=== PATIENT | male | born 2000 | race Caucasian/White ===

== ENCOUNTER 2022-04-22 11:47 | Emergency (ER) | payer OTHER, SELFPAY ==
[2022-04-22 12:11] VITALS: BP 143/97; PULSE 74; RESP 18; TEMP 36.9; O2SAT 99; BMI 31.2
--- NOTE | 2022-04-22 12:20 | CRLHL7_ITS ---
For Patients: As a result of the Cures Act, medical imaging exams and procedure reports are released immediately into your electronic medical record. You may view this report before your referring provider. If you have questions, please contact your health care provider. Indication: Medial and lateral knee pain after twisting Comparison: None available. Technique: Standing AP, lateral, and sunrise views of the left knee were obtained Findings: There is subtle likely avulsion from the medial tibial tubercle with a thin corticated fragment projecting over the medial joint space. No evidence of large displaced fracture. There is mild medial compartmental joint space narrowing with minimal tibial spine spurring. There is moderate suprapatellar joint effusion. Impression: Demonstration of a thin likely avulsion fragment projecting over the medial joint space near the medial tibial tubercle likely representing sequela of ligamentous injury. Moderate joint effusion. No evidence of displaced fracture. Dictated by Renny Cordero MD @ 04/22/2022 1:05:00 PM (Electronically Signed)
[2022-04-22] MEDS: ACETAMINOPHEN 500 MG TABLET 1000 MG PO (12:44)
--- NOTE | 2022-04-22 13:36 | ED.GENADULT ---
HPI - General Adult General Chief complaint: Extremity Pain/Injury, Lower Stated complaint: Left knee injury Time Seen by Provider: 04/22/22 11:51 Source: patient Limitations: no limitations History of Present Illness HPI narrative: 21-year-old male coming in today with knee pain. States that he was at football practice when he was running to catch a ball turned and felt his knee twist and pop. When it initially occurred, he had pain laterally and per his rehab trainer had some lateral deformity. Now he states that the pain is mostly medially. [facility] stated that they were able to manipulate the knee and thought that it might have been dislocated but now popped back into place. Unclear if that was the kneecap that they were talking about. Related Data Home Medications Medication Instructions Recorded Confirmed No Known Home Medications 04/22/22 04/22/22 Allergies Allergy/AdvReac Type Severity Reaction Status Date / Time No Known Drug Allergies Allergy Verified 04/22/22 12:11 Review of Systems Narrative: Denies any other injury [facility] Medical History No significant past medical history Surgical History History of wisdom tooth extraction Social History Smoking Status: Never smoker Second hand tobacco smoke exposure: No How often do you have a drink containing alcohol: monthly or less How many standard drinks containing alcohol do you have on a typical day: 3 or 4 How often do you have six or more drinks on one occasion: Never AUDIT-C Alcohol total score: 2 Non-prescribed substance use: denies use Exam Narrative: Exam Narrative: Well-nourished well-developed patient in no acute distress. Alert and oriented. Answers questions appropriately. Mood and affect are appropriate. Thoughts are goal oriented and rational. No tangential or magical thinking noted. Patient speaks in full sentences without needing to catch their breath. Speech is not slurred or pressured HEENT: Normocephalic atraumatic. Pupils are equally round reactive to light. Extraocular muscles are intact. Conjunctivae are moist without any icterus noted. Extremities: Bilateral lower extremities are without edema. Normal DP and PT pulses. He has tenderness along the medial joint line as well as the proximal tibia. He has no tenderness to palpation of the patella. No pain with compression of the patella. He has decreased range of motion with inability to bend at the knee secondary to pain. There is a joint effusion present. There is no bruising or erythema. No broken skin. Has significant discomfort with any valgus or varus force. Skin: Well perfused without any obvious rashes. Const: Vital Signs, click to edit/add: Vital Signs - 24 hr 04/22/22 12:11 Temperature 98.5 F Pulse Rate [Left P ulse Oximeter] 74 Respiratory Rate 18 Blood Pressure [Le ft Upper Arm] 143/97 H Pulse Oximetry 99 Oxygen Delivery Me thod Room Air Course Course Hospital Course: X-rays showing a joint effusion with a tibial tubercle avulsion fracture. Vital Signs Vital signs: Initial Vital Signs Temperature 98.5 F 04/22/22 12:11 Temperature Source Temporal Artery Scan 04/22/22 12:11 Pulse Rate 74 04/22/22 12:11 Respiratory Rate 18 04/22/22 12:11 Blood Pressure 143/97 H 04/22/22 12:11 Blood Pressure Mean 112 04/22/22 12:11 Blood Pressure Position Sitting 04/22/22 12:11 Pulse Oximetry 99 04/22/22 12:11 Oxygen Delivery Method 04/22/22 12:11 Vital Signs Temperature 98.5 F 04/22/22 12:11 Pulse Rate 74 04/22/22 12:11 Respiratory Rate 18 04/22/22 12:11 Blood Pressure 143/97 H 04/22/22 12:11 Pulse Oximetry 99 04/22/22 12:11 Oxygen Delivery Method 04/22/22 12:11 Temperature 98.5 F 04/22/22 12:11 Pulse Rate 74 04/22/22 12:11 Respiratory Rate 18 04/22/22 12:11 Blood Pressure 143/97 H 04/22/22 12:11 Pulse Oximetry 99 04/22/22 12:11 Oxygen Delivery Method 04/22/22 12:11 Medical Decision Making MDM Narrative Medical decision making narrative: 21-year-old male with a tibial tubercle fracture, likely ligamentous injury as well. Patient will be placed in a knee immobilizer and to follow-up with orthopedic surgery next week. We discussed symptomatic treatment in the meantime. He had no other questions. Imaging Data Knee x-ray: Attestation: I have reviewed the pertinent imaging results. Radiologist's impression: Findings: There is subtle likely avulsion from the medial tibial tubercle with a thin corticated fragment projecting over the medial joint space. No evidence of large displaced fracture. There is mild medial compartmental joint space narrowing with minimal tibial spine spurring. There is moderate suprapatellar joint effusion. Impression: Demonstration of a thin likely avulsion fragment projecting over the medial joint space near the medial tibial tubercle likely representing sequela of ligamentous injury. Moderate joint effusion. No evidence of displaced fracture. Discharge Plan Discharge Clinical Impression: Fracture of tibia Patient Disposition: Home, Self-Care Condition: Stable Additional Instructions: You have a fracture of the tibial tubercle, and likely some ligamentous injury of the knee as well. He will follow up next week with orthopedic surgeon for further imaging if needed. Use knee immobilizer at all times. Okay to use Tylenol or ibuprofen as needed for discomfort. Prescriptions: No Action No Known Home Medications Follow Up/Referrals: Provider,Not a Local [Primary Care Provider] - Stand Alone Forms: [employer] Info Instructions
== END 2022-04-22 14:35 | disposition home or self-care (01) ==
PROVIDERS: Emergency Provider Family Medicine
DX: S82.202A Unspecified fracture of shaft of left tibia, initial encounter for closed fracture (principal); X50.9XXA Other and unspecified overexertion or strenuous movements or postures, initial encounter; Y93.61 Activity, american tackle football; Y92.321 Football field as the place of occurrence of the external cause; Y99.8 Other external cause status
CPT/HCPCS: 73564; 99283; 99284; A9270